=== PATIENT | male | born 1995 | race Caucasian/White ===

== ENCOUNTER → 2022-02-25 | Emergency (ER) | payer OTHER ==
[~2022-02-25] MED LIST: ERYTHROMYCIN O3.5 GM EYERT; IBUPROFEN800 MG PO
== END | disposition home or self-care (01) ==
LOC: ER1 21:00
DX: T15.01XA Foreign body in cornea, right eye, initial encounter (principal); X58.XXXA Exposure to other specified factors, initial encounter
CPT/HCPCS: 65205; 99283